=== PATIENT | female | born 1990 | race Caucasian/White ===

== ENCOUNTER 2016-10-23 03:08 | Emergency (ER) | payer SELFPAY ==
--- NOTE | 2016-10-23 03:28 | EDM.PDOC ---
ED HPI GENERAL MEDICAL PROBLEM - General Chief Complaint: ENT Problem Stated Complaint: LEFT EAR PAIN Time Seen by Provider: 10/23/16 03:15 - History of Present Illness INITIAL COMMENTS - FREE TEXT/NARRATIVE: HISTORY AND PHYSICAL: History of present illness: The patient is a healthy 25-year-old female who presents with acute onset of pain and foreign body sensation in her left ear that started 10-15 minutes prior to coming to the ED. Patient says she had no systemic complaints yesterday and had no ear pain and was at home when this started. When the patient got to the ER she was initially seen by the nurse in triage and she was registering she told nursing that a bug came out of her ear and she was taking a picture of it. The patient says that her ear is still uncomfortable and she is somewhat freaked out by it and before the bug came out she could feel movement scratching and pain in the left ear. She has no sinus congestion sore throat nasal drainage fevers or chills Review of systems: As per history of present illness and below otherwise all systems reviewed and negative. Past medical history: As per history of present illness and as reviewed below otherwise noncontributory. Surgical history: As per history of present illness and as reviewed below otherwise noncontributory. Social history: No reported history of drug or alcohol abuse. Family history: As per history of present illness and as reviewed below otherwise noncontributory. Physical exam: Gen.: Well-developed well-nourished female was visibly anxious in the room and vital signs of the noted by me HEENT: Atraumatic, normocephalic, pupils reactive, negative for conjunctival pallor or scleral icterus, mucous membranes moist, throat clear, neck supple, nontender, trachea midline. TMs are normal bilaterally but the external canal on the left oriented with some scattered areas of punctate bleeding as well as some cerumen at the TM appears to be intact. Lungs: Clear to auscultation, breath sounds equal bilaterally, chest nontender. Heart: S1S2, regular rate and rhythm no overt murmurs Abdomen: Soft, nondistended, nontender. NABS Skin: No evidence of any overt rashes or lesions turgor is normal. Genitourinary: Deferred. Rectal: Deferred. Extremities: Atraumatic, negative for cords or calf pain. Neurovascular unremarkable. Neuro: Awake, alert, oriented. Cranial nerves II through XII unremarkable. Cerebellum unremarkable. Motor and sensory unremarkable throughout. Exam nonfocal. Diagnostics: [] Therapeutics: [] Discussed with the patient as the insect has removed itself prior to my intervention we will go ahead and give her Cortisporin ear drops were the brewing outer ear infection. I've advised her to place nothing in her ear including Q-tips and to protect her from water. I've also advised that she investigate her home environment to prevent this from occurring again Impression: Foreign body to left ear resolved prior to evaluation Definitive disposition and diagnosis as appropriate pending reevaluation and review of above. Left Ear Pain Score (Numeric/FACES): 10 - Related Data Allergies Allergy/AdvReac Type Severity Reaction Status Date / Time Penicillins Allergy Anaphylactic Verified 10/23/16 03:23 Shock ED ROS GENERAL - Review of Systems Review Of Systems: ROS reveals no pertinent complaints other than HPI. ED EXAM, GENERAL - Physical Exam Exam: See Below (See dictation) Course - Vital Signs Last Recorded V/S: Last Vital Signs Temp 36.6 C 10/23/16 03:09 Pulse 102 H 10/23/16 03:09 Resp 26 H 10/23/16 03:09 BP 165/96 H 10/23/16 03:09 Pulse Ox 98 10/23/16 03:09 Departure - Departure Time of Disposition: 03:26 Disposition: Home, Self-Care 01 Condition: Good Clinical Impression: Foreign body in ear Qualifiers: Encounter type: initial encounter Laterality: left Qualified Code(s): T16.2XXA - Foreign body in left ear, initial encounter - Discharge Information Forms: ED Department Discharge Additional Instructions: The following information is given to patients seen in the emergency department who are being discharged to home. This information is to outline your options for follow-up care. We provide all patients seen in our emergency department with a follow-up referral. The need for follow-up, as well as the timing and circumstances, are variable depending upon the specifics of your emergency department visit. If you don't have a primary care physician on staff, we will provide you with a referral. We always advise you to contact your personal physician following an emergency department visit to inform them of the circumstance of the visit and for follow-up with them and/or the need for any referrals to a consulting specialist. The emergency department will also refer you to a specialist when appropriate. This referral assures that you have the opportunity for followup care with a specialist. All of these measure are taken in an effort to provide you with optimal care, which includes your followup. Under all circumstances we always encourage you to contact your private physician who remains a resource for coordinating your care. When calling for followup care, please make the office aware that this follow-up is from your recent emergency room visit. If for any reason you are refused follow-up, please contact the [facility] emergency department at and ask to speak to the emergency department charge nurse. [facility]- [facility] [id number] Please use Cortisporin otic drops given to you tonight from [employer] [facility] and prevent anything from getting in the ear including water and use no Q-tips or other objects in the ear until you're done with the eardrops. Use over-the- counter medications for any pain and please follow-up with her clinic physician next week for reevaluation and further care. Return to ER as needed and as discussed
== END 2016-10-23 03:45 | disposition home or self-care (01) ==
LOC: MW.ED 03:08
CPT/HCPCS: 99282